=== PATIENT | male | born 1955 | race Two or more races ===

== ENCOUNTER 2025-03-21 21:38 | Emergency (ER) | payer MEDICARE ==
[~2025-03-21] VITALS: Ht 165.1 cm; Wt 58.0 kg
[2025-03-21 22:04] VITALS: TEMP 97.6
--- NOTE | 2025-03-21 22:42 | Physician Documentation ---
History of Present Illness ~ Chief Complaint: Neck pain Stated Complaint: FALL Time Seen by MD: 01:48 HPI 69 year old male presents to the ED after injured himself two weeks ago in [place] after he fell 20 ft an injury in his head and neck. I state that they were seen in [place] in his had a CT scan. I said there was abnormal results however they do not know what those results were. Since then patient has had increased pain especially with range of motion on the backside of his head Day of Onset: Mar 21, 2025 Medication Reconciliation Allergies: Coded Allergies: No Known Allergies (Unverified , 03/21/25) Review of Systems ROS All review of systems negative except as per HPI Physical Exam Vital Signs: Temperature: 97.6, Source: Temporal, Heart Rate: 71, Respiratory Rate: 15, BP: 142/75, Pulse Oximetry: 97, Weight: 57.950 General Appearance General: Patient is awake, alert, oriented x4 in no acute distress and well appearing.~ Head: Normocephalic and atraumatic. Eyes: Conjunctival normal. EOMI. PERRL. ENT: Mucous membranes moist. Neck: Supple, trachea is midline. Chest: Clear to auscultation bilaterally without rales, rhonchi, or wheezes. There is no accessory muscle use or retractions. Cardiac: RRR without murmurs, gallops, or rubs. Neuro: Cranial nerves II-XII grossly intact. No focal neuro deficits. Patient ambulating without difficulty. Progress Results/Orders Results/Orders Vital Signs 03/21/25 03/22/25 03/22/25 03/22/25 22:04 01:47 01:47 02:10 Temp 97.6 Pulse 71 62 63 Resp 15 16 16 16 B/P (MAP) 142/75 141/79 (99) 133/81 Pulse Ox 97 98 98 O2 Flow Rate 0 03/22/25 02:23 Resp 16 Medical Decision Making Findings Patient presented to the emergency room with headache as per HPI. Differentials include but are not limited to fractures, dislocations, hematomas, intracranial bleeds therefore emergent CT scans ordered which were reassuring. We will treat patient for headache. ER precautions discussed. I do not feel he requires emergent labs Departure Disposition: HOME / SELF CARE / HOMELESS Impression: Primary Impression: Headache Condition: Stable Discharge Instructions: Cervicogenic Headache Additional Instructions: [id number] ibuprofen and Tylenol for pain Referrals: NO PRIMARY CARE PROVIDER (PCP) Education Educated: Patient, Family Educated regarding: diagnosis, treatment, need for follow up Signature Scribe Signature: No scribe Attestation: The note accurately reflects work and decisions made by me.Panchito Briceño MD 03/22/25 02:01 MARCO PARIS NP Mar 21, 2025 22:42 PANCHITO BRICEÑO MD Mar 22, 2025 02:01
--- NOTE | 2025-03-21 22:50 | RADIOLOGY REPORT ---
EXAM: CT CT HEAD INDICATION: TRAUMA TECHNIQUE: CT of the head without intravenous contrast. Radiation Dose : 1. Head: CT Dose: CTDI volume is 58.85 mGy. Dose-length product is 1021.99 mGy*cm The dose indicators for CT are the volume Computed Tomography (CT) Dose Index (CTDIvol) and the Dose Length Product (DLP), and are measured in units of mGy and mGy-cm, respectively. These indicators are not patient dose, but values generated from the CT scanner acquisition factors. The report includes radiation exposure data for exposures received during this examination. COMPARISON: None FINDINGS: There is no evidence of acute intracranial hemorrhage, extra-axial collection, mass effect, midline s hift, herniation or hydrocephalus. The ventricles, sulci and cisterns are age appropriate. The weeks-white differentiation is intact. The visualized paranasal sinuses and mastoid air cells are clear. The surrounding soft tissues and osseous structures are unremarkable. IMPRESSION: 1. No acute intracranial abnormality. Radiation optimization: All CT scans at this facility use at least one of these dose optimization mary hniques: automated exposure control mA and/or kV adjustment per patient size (includes targeted exam s where dose is matched to clinical indication) or iterative reconstruction.
--- NOTE | 2025-03-21 22:54 | RADIOLOGY REPORT ---
EXAM: CT CT CERVICAL SPINE INDICATION: FALL FROM ROOF EXAM DATE: 03/21/2025 10:33 PM COMPARISON: None TECHNIQUE: Multiple axial CT images of the cervical spine were obtained using bone algorithm. Axial a nd coronal reformatting was done. Bone and soft tissue windows were reviewed. Radiation Dose Information: CT Dose: CTDI volume is 21.7 mGy. Dose-length product is 453.47 mGy*cm FINDINGS: There is no acute displaced fracture. The alignment is maintained. A Schmorl's node and encroaches u millie the superior endplate of C6. No significant degenerative changes are identified. There is no high-grade spinal canal or neural for aminal stenosis. The paraspinal soft tissues and lung apices are unremarkable. IMPRESSION: 1. No acute displaced fracture. 2. If clinical symptoms persist, MRI may be beneficial in further evaluation. 3. All CT scans at this medical facility are performed using dose modulation techniques as appropriat e to a performed exam including the following: Automated exposure control was utilized; adjustment of the MA and/or KV according to patient size; and use of iterative reconstruction technique.
[2025-03-22 02:10] VITALS: BP 133/81; PULSE 63; O2SAT 98
[2025-03-22 02:23] VITALS: RESP 16
[2025-03-22] MEDS: ketorolac trometh 15mg/ml vial 15 MG/ML ML IM ONE (02:23)
[2025-03-22] MEDS: acetaminophen 325mg tablet PO ONE (02:23)
== END 2025-03-22 02:29 | disposition home or self-care (01) ==
LOC: ER 21:39
DX: R51.9 Headache, unspecified (principal); M54.2 Cervicalgia; W19.XXXA Unspecified fall, initial encounter; Y93.89 Activity, other specified; Y92.89 Other specified places as the place of occurrence of the external cause; Y99.8 Other external cause status
CPT/HCPCS: 70450; 72125; 96372; 99285; J1885